=== PATIENT | female | born 1960 | race Caucasian/White ===

== ENCOUNTER 2024-03-07 08:35 | Emergency (ER) | payer MEDICAID ==
[~2024-03-07] VITALS: Ht 157.5 cm; Wt 63.0 kg
[2024-03-07 08:40] VITALS: O2SAT 99
[2024-03-07] MEDS: ACETAMINOPHEN 325MG TABLET PO ONE (09:15)
[2024-03-07] MEDS: IBUPROFEN 600MG TABLET PO ONE (12:30)
[2024-03-07 13:02] VITALS: BP 123/86; PULSE 84; RESP 18; TEMP 36.89184; O2SAT 100
== END 2024-03-07 13:15 | disposition home or self-care (01) ==
LOC: ER 08:35
DX: S62.91XA Unspecified fracture of right hand, initial encounter for closed fracture (principal); S00.212A Abrasion of left eyelid and periocular area, initial encounter; M25.562 Pain in left knee; M25.561 Pain in right knee; W18.39XA Other fall on same level, initial encounter; Y93.89 Activity, other specified; Y92.89 Other specified places as the place of occurrence of the external cause; Y99.8 Other external cause status
CPT/HCPCS: 29125; 70486; 73130; 73502; 73562; 81025; 99284